=== PATIENT | female | born 1995 | race Hispanic/Latino ===

== ENCOUNTER 2019-05-23 17:01 | Emergency (ER) | payer SELFPAY ==
[2019-05-23] MEDS ORDERED: ACYCLOVIR 400 MG TABLET ONE (17:28)
[2019-05-23] MEDS ORDERED: predniSONE 20 MG TAB ONE (17:28)
[2019-05-23] MEDS ORDERED: FAMOTIDINE 20 MG TAB ONE ×2 (17:29)
--- NOTE | 2019-05-23 18:18 | RAD REPORT ---
EXAM DESCRIPTION: CT - Head Brain Wo Cont - 05/23/2019 5:52 pm CLINICAL HISTORY: Monterroso's palsy/numbness COMPARISON: None TECHNIQUE: Computed axial tomography of the head was obtained. IV contrast was not requested. All CT scans are performed using dose optimization technique as appropriate and may include automated exposure control or mA/KV adjustment according to patient size. FINDINGS: An intracranial bleed is not seen . The ventricles are normal in caliber. No extra-axial fluid collection is noted. Fluid within the sinuses/ mastoids is not seen. IMPRESSION: No acute intracranial abnormality is seen. If patient's symptoms persist MRI of the bra in would be recommended.
--- NOTE | 2019-05-23 18:23 | ER ---
Nurse's Notes [facility] Name: Daniella Palomares Age: 23 yrs Sex: Female : 1995 Arrival Date: 05/23/2019 Time: 17:01 Bed 18 Private MD: Diagnosis: Monterroso's palsy Presentation: 05/23 17:07 Presenting complaint: Right sided facial numbness x 5 days. Pr reports numbness began hb at right lip then progressed over the last few days to cheek and right eye area. Transition of care: patient was not received from another setting of care. Onset of symptoms was May 19, 2019. Risk Assessment: Do you want to hurt yourself or someone else? Patient reports no desire to harm self or others. Initial Sepsis Screen: Does the patient meet any 2 criteria? No. Patient's initial sepsis screen is negative. Does the patient have a suspected source of infection? No. Patient's initial sepsis screen is negative. Care prior to arrival: None. 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 - Social history:: Smoking status: Patient/guardian denies using tobacco. - Ebola Screening: : No symptoms or risks identified at this time. Screenin:16 Abuse screen: Denies threats or abuse. Nutritional screening: No deficits noted. em Tuberculosis screening: No symptoms or risk factors identified. Fall Risk None identified. Assessment: 17:29 General: Appears in no apparent distress. comfortable, Behavior is calm, cooperative, em Denies fever. Pain: Denies pain. Neuro: Level of Consciousness is awake, alert, obeys commands, Oriented to person, place, time, situation, Appropriate for age Undercover Cop are equal bilaterally Moves all extremities. Gait is steady, Speech is normal, Facial droop on right, Pupils are Numbness in right eye, right cheek and right jaw Reports headache parietal area. Cardiovascular: Capillary refill < 3 seconds Patient's skin is warm and dry. Respiratory: Airway is patent Respiratory effort is even, unlabored, Respiratory pattern is regular, symmetrical. GI: Patient currently denies nausea, vomiting. EENT: Denies difficulty swallowing. Derm: Skin is intact, is healthy with good turgor, Skin is pink, warm \T\ dry. Musculoskeletal: Capillary refill < 3 seconds, Range of motion: intact in all extremities. Vital Signs: 17:07 BP 115 / 80; Pulse 76; Resp 16; Temp 97.8; Pulse Ox 100% on R/A; Weight 76.2 kg; Height hb 5 ft. 7 in. (170.18 cm); Pain 0/10; 17:07 Body Mass Index 26.31 (76.20 kg, 170.18 cm) hb ED Course: 17:01 Patient arrived in ED. as 17:06 Arm band placed on. hb 17:09 Triage completed. hb 17:11 [facility] snw 17:11 Marcus Hutson MD is Attending Physician. snw 17:15 Joni Rajput LVN is Primary Nurse. em 17:16 Patient has correct armband on for positive identification. Bed in low position. Call em light in reach. Adult w/ patient. 17:53 CT Head Brain wo Cont In Process Unspecified. EDMS 18:34 No provider procedures requiring assistance completed. Patient did not have IV access em during this emergency room visit. Administered Medications: 17:36 Drug: predniSONE 40 mg Route: PO; em 18:34 Follow up: Response: No adverse reaction em 17:36 Drug: Pepcid 20 mg Route: PO; em 18:33 Follow up: Response: No adverse reaction em 17:36 Drug: Acyclovir 800 mg Route: PO; em 18:33 Follow up: Response: No adverse reaction em Outcome: 18:22 Discharge ordered by . snw 18:34 Discharged to home ambulatory, with family. em 18:34 Condition: good 18:34 Discharge instructions given to patient, family, Instructed on discharge instructions, follow up and referral plans. medication usage, Demonstrated understanding of instructions, follow-up care, medications, Prescriptions given X 3. 18:35 Patient left the ED. em Signatures: Dispatcher [employer] EDMS Sonia Matthew FNP-C RACK PULLER-Csnw Joni Rajput LVN LVN Krystal Love as Magnolia Thornton, RN RN hb
--- NOTE | 2019-05-23 18:23 | EDPHYS ---
Physician Documentation [facility] Name: Daniella Palomares Age: 23 yrs Sex: Female : 1995 Arrival Date: 05/23/2019 Time: 17:01 Bed 18 Private MD: ED Physician Marcus Hutson HPI: 05/23 17:24 This 23 yrs old Female presents to ER via Ambulatory with complaints of snw Numbness Of Face. 17:24 Onset: The symptoms/episode began/occurred suddenly, 5 day(s) ago, and became snw persistent. Associated signs and symptoms: Pertinent positives: The patient does not have any pertinent positive signs or symptoms associated with pediatric illness. The patient has not experienced similar symptoms in the past. The patient has not recently seen a physician. 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 - Social history:: Smoking status: Patient/guardian denies using tobacco. - Ebola Screening: : No symptoms or risks identified at this time. ROS: 17:23 Constitutional: Negative for fever, chills, and weight loss, Eyes: Negative for injury, snw pain, redness, and discharge, ENT: Negative for injury, pain, and discharge, Neck: Negative for injury, pain, and swelling, Cardiovascular: Negative for chest pain, palpitations, and edema, Respiratory: Negative for shortness of breath, cough, wheezing, and pleuritic chest pain, Abdomen/GI: Negative for abdominal pain, nausea, vomiting, diarrhea, and constipation, Back: Negative for injury and pain, : Negative for injury, bleeding, discharge, and swelling, MS/Extremity: Negative for injury and deformity, Skin: Negative for injury, rash, and discoloration. 17:23 Neuro: Positive for of the right eye, right cheek, right jaw and right side of forehead. Exam: 17:22 Constitutional: This is a well developed, well nourished patient who is awake, alert, snw and in no acute distress. Eyes: Pupils equal round and reactive to light, extra-ocular motions intact. Lids and lashes normal. Conjunctiva and sclera are non-icteric and not injected. Cornea within normal limits. Periorbital areas with no swelling, redness, or edema. ENT: Nares patent. No nasal discharge, no septal abnormalities noted. Tympanic membranes are normal and external auditory canals are clear. Oropharynx with no redness, swelling, or masses, exudates, or evidence of obstruction, uvula midline. Mucous membranes moist. Neck: Trachea midline, no thyromegaly or masses palpated, and no cervical lymphadenopathy. Supple, full range of motion without nuchal rigidity, or vertebral point tenderness. No Meningismus. Chest/axilla: Normal chest wall appearance and motion. Nontender with no deformity. No lesions are appreciated. Cardiovascular: Regular rate and rhythm with a normal S1 and S2. No gallops, murmurs, or rubs. Normal PMI, no JVD. No pulse deficits. Respiratory: Lungs have equal breath sounds bilaterally, clear to auscultation and percussion. No rales, rhonchi or wheezes noted. No increased work of breathing, no retractions or nasal flaring. Abdomen/GI: Soft, non-tender, with normal bowel sounds. No distension or tympany. No guarding or rebound. No evidence of tenderness throughout. Back: No spinal tenderness. No costovertebral tenderness. Full range of motion. Skin: Warm, dry with normal turgor. Normal color with no rashes, no lesions, and no evidence of cellulitis. MS/ Extremity: Pulses equal, no cyanosis. Neurovascular intact. Full, normal range of motion. Neuro: Awake and alert, GCS 15, oriented to person, place, time, and situation. Cranial nerves II-XII grossly intact. Motor strength 5/5 in all extremities. Sensory grossly intact. Cerebellar exam normal. Normal gait. Psych: Awake, alert, with orientation to person, place and time. Behavior, mood, and affect are within normal limits. 17:22 Head/face: Noted is no obvious of injury or deformity except decreased sensation over right face. Vital Signs: 17:07 BP 115 / 80; Pulse 76; Resp 16; Temp 97.8; Pulse Ox 100% on R/A; Weight 76.2 kg; Height hb 5 ft. 7 in. (170.18 cm); Pain 0/10; 17:07 Body Mass Index 26.31 (76.20 kg, 170.18 cm) hb MDM: 17:12 Patient medically screened. snw 18:23 Data reviewed: vital signs, nurses notes. Data interpreted: Pulse oximetry: on room air snw is 100 %. Interpretation: normal. Counseling: I had a detailed discussion with the patient and/or guardian regarding: the historical points, exam findings, and any diagnostic results supporting the discharge/admit diagnosis, the presence of at least one elevated blood pressure reading (>120/80) during this emergency department visit, lab results, the need for outpatient follow up, to return to the emergency department if symptoms worsen or persist or if there are any questions or concerns that arise at home. Special discussion: I have referred the patient to see his PCP for further evaluation of high blood pressure. Based on the history and exam findings, there is no indication for further emergent testing or inpatient evaluation. I discussed with the patient/guardian the need to see the primary care provider for further evaluation of the symptoms. 05/23 17:26 Order name: CT Head Brain wo Cont; Complete Time: 18:21 snw 05/23 17:20 Order name: Urine Dipstick-Ancillary (obtain specimen); Complete Time: 17:24 snw 05/23 17:20 Order name: Urine Test (obtain specimen); Complete Time: 17:24 snw Administered Medications: 17:36 Drug: predniSONE 40 mg Route: PO; em 18:34 Follow up: Response: No adverse reaction em 17:36 Drug: Pepcid 20 mg Route: PO; em 18:33 Follow up: Response: No adverse reaction em 17:36 Drug: Acyclovir 800 mg Route: PO; em 18:33 Follow up: Response: No adverse reaction em Disposition: 18:40 Co-signature as Attending Physician, Marcus Hutson MD. rn Disposition: 05/23/19 18:22 Discharged to Home. Impression: Monterroso's palsy. - Condition is Stable. - Discharge Instructions: Monterroso Palsy, Adult, Dry Eye. - Prescriptions for Valtrex 1 g Oral Tablet - take 1 tablet by ORAL route every 8 hours for 7 days; 21 tablet. Prednisone 20 mg Oral Tablet - take 2 tablet by ORAL route once daily for 5 days; 10 tablet. Pepcid 20 mg Oral Tablet - take 1 tablet by ORAL route once daily for 10 days; 10 tablet. - Medication Reconciliation Form, Thank You Letter, Antibiotic Education, Prescription Opioid Use form. - Follow up: Private Physician; When: 2 - 3 days; Reason: Recheck today's complaints, Continuance of care, Re-evaluation by your physician. Follow up: Emergency Department; When: As needed; Reason: Worsening of condition. Signatures: Dispatcher [employer] EDCA Sonia Matthew, WARREN-C PARKING ENFORCEMENT MANAGER-Csnw Joni Rajput, DIVE MASTER DIVE MASTER em Marcus Hutson MD MD rn Baxter, Heather, RN RN Corrections: (The following items were deleted from the chart) 18:35 18:22 05/23/2019 18:22 Discharged to Home. Impression: Monterroso's palsy. Condition is em Stable. Forms are Medication Reconciliation Form, Thank You Letter, Antibiotic Education, Prescription Opioid Use. Follow up: Private Physician; When: 2 - 3 days; Reason: Recheck today's complaints, Continuance of care, Re-evaluation by your physician. Follow up: Emergency Department; When: As needed; Reason: Worsening of condition. snw
[2019-05-23 19:00] VITALS: BP 115/80; TEMP 97.8; O2SAT 100
== END 2019-05-23 18:35 | disposition home or self-care (01) ==
LOC: ER 17:01
DX: G51.0 Bell's palsy (principal)
CPT/HCPCS: 70450; 99283; J7512

== ENCOUNTER 2019-09-08 20:08 | Emergency (ER) | payer SELFPAY ==
--- OUTSIDE RECORDS SUMMARY | 2019-09-08 20:10 | XMS REPORT ---
:1995 [facility] Address [address] [place] [address] Dr. De León [phone] Care Team Providers Name Role Phone Unavailable Unavailable Unavailable Payers Payer Name Policy Type Policy Number Effective Date Expiration Date Problems This patient has no known problems. Allergies, Adverse Reactions, Alerts Allergy Allergy Status Severity Reaction(s) Onset Inactive Treating Comments Name Type Date Date Clinician No Known DA Active U 2018-05 Allergies -24 00:00:0 0 No Known DA Active U 2015-11 Allergies -15 00:00:0 0 Medications This patient has no known medications.
--- NOTE | 2019-09-08 21:03 | RAD REPORT ---
EXAM DESCRIPTION: RAD - Chest Pa And Lat (2 Views) - 09/08/2019 8:58 pm CLINICAL HISTORY: COUGH Chest pain. COMPARISON: No comparisons FINDINGS: The lungs are clear. The heart is normal in size. No displaced fractures. IMPRESSION: No acute or concerning finding suspected.
--- NOTE | 2019-09-08 21:48 | ER ---
Nurse's Notes [facility] Name: Daniella Palomares Age: 24 yrs Sex: Female : 1995 Arrival Date: 09/08/2019 Time: 20:10 Bed 30 Private MD: Diagnosis: Acute bronchitis, unspecified Presentation: 09/07 20:18 Chief complaint: Patient states: Was at [facility] 2 weeks ago, they tested for ca1 Flu and Strep, both negative. Prescribed Bromfed and Ibuprofen. [place] the same and not better. Reports feeling sick and having cough and congestion for 1 month and 1 week now. Visited [facility] again today, sent here to the ER. Reports fever for the past few days. Coronavirus screen: The patient has NOT traveled to a country currently being monitored by the CDC within the last 14 days. The patient has NOT had contact with any known and/or suspected case of coronavirus. Ebola Screen: Patient negative for fever greater than or equal to 101.5 degrees Fahrenheit, and additional compatible Ebola Virus Disease symptoms Patient denies exposure to infectious person. Patient denies travel to an Ebola-affected area in the 21 days before illness onset. No symptoms or risks identified at this time. Initial Sepsis Screen: Does the patient meet any 2 criteria? No. Patient's initial sepsis screen is negative. Does the patient have a suspected source of infection? No. Patient's initial sepsis screen is negative. Risk Assessment: Do you want to hurt yourself or someone else? Patient reports no desire to harm self or others. Onset of symptoms was September 08, 2019. 20:18 Method Of Arrival: Ambulatory ca1 20:18 Acuity: JUDD 3 ca1 Triage Assessment: 22:04 General: Appears in no apparent distress. Behavior is calm, cooperative. iw CLOSER ON: 20:22 LMP 09/07/2019 ca1 Historical: - Allergies: 20:22 No Known Allergies; ca1 - Home Meds: 20:22 None [Active]; ca1 - PMHx: 20:22 None; ca1 - PSHx: 20:22 None; ca1 - Immunization history:: Adult Immunizations up to date, Flu vaccine is not up to date. - Social history:: Smoking status: Patient denies any tobacco usage or history of. Screenin:00 Abuse screen: Denies threats or abuse. Denies injuries from another. Nutritional iw screening: No deficits noted. Tuberculosis screening: No symptoms or risk factors identified. Fall Risk None identified. Assessment: 21:40 General: Appears in no apparent distress. Behavior is calm, cooperative, appropriate iw for age. Pain: Complains of pain in throat. Neuro: Level of Consciousness is awake, alert, obeys commands, Oriented to person, place, time, situation, Moves all extremities. Cardiovascular: Patient's skin is warm and dry. Respiratory: Reports cough that is non-productive, Respiratory effort is even, unlabored, Respiratory pattern is regular, symmetrical. Derm: Skin is intact, is healthy with good turgor. Musculoskeletal: Range of motion: intact in all extremities. Vital Signs: 20:18 BP 125 / 77; Pulse 88; Resp 19 S; Temp 97.3(TE); Pulse Ox 100% on R/A; Weight 80.74 kg ca1 (R); Height 5 ft. 7 in. (170.18 cm) (R); Pain 6/10; 20:18 Body Mass Index 27.88 (80.74 kg, 170.18 cm) ca1 ED Course: 20:10 Patient arrived in ED. ag3 20:21 Triage completed. ca1 20:22 Arm band placed on right wrist. ca1 20:23 Yuri Pagan MD is Attending Physician. sol 20:24 Yuri Armenta PA is PHCP. cp 20:35 Zoya Lizarraga, RN is Primary Nurse. iw 20:59 Chest Pa And Lat (2 Views) XRAY In Process Unspecified. EDMS 21:40 Patient has correct armband on for positive identification. iw 22:04 No provider procedures requiring assistance completed. Patient did not have IV access iw during this emergency room visit. Administered Medications: No medications were administered Outcome: 21:48 Discharge ordered by . cp 22:04 Discharged to home ambulatory. iw 22:04 Condition: good 22:04 Discharge instructions given to patient, Instructed on discharge instructions, follow up and referral plans. medication usage, Demonstrated understanding of instructions, follow-up care, medications, Prescriptions given X 3. 22:05 Patient left the ED. iw Signatures: Dispatcher [employer] EDMS Yuri Pagan MD MD cha Williams, Irene, RN RN iw Yuri Armenta PA PA Nanette Butcher 3 Acob, Mayra, RN RN ca1
--- NOTE | 2019-09-08 21:48 | EDPHYS ---
Physician Documentation [facility] Name: Daniella Palomares Age: 24 yrs Sex: Female : 1995 Arrival Date: 09/08/2019 Time: 20:10 Bed 30 Private MD: ED Physician Yuri Pagan HPI: 09/07 20:35 This 24 yrs old Female presents to ER via Ambulatory with complaints of Cough, cp Fever. 20:35 The patient or guardian reports cough, that is intermittent, with productive sputum, cp that is yellow. Onset: The symptoms/episode began/occurred 1 month(s) ago. 20:35 The patient has been recently seen by a physician: at a clinic, earlier today, 2 cp week(s) ago, with similar presenting complaints, and was sent to the [facility] Emergency Department for further evaluation. 20:35 Associated signs and symptoms: Pertinent negatives: chest pain, fever, vomiting. 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 - Social history:: Smoking status: Patient denies any tobacco usage or history of. ROS: 20:40 Constitutional: Negative for body aches, chills, fever, poor PO intake. cp 20:40 Eyes: Negative for injury, pain, redness, and discharge. cp 20:40 ENT: Negative for drainage from ear(s), ear pain, sore throat, difficulty swallowing, difficulty handling secretions. 20:40 Cardiovascular: Negative for chest pain, edema, palpitations. 20:40 Respiratory: Positive for cough, "sounds productive", Negative for shortness of breath, wheezing. 20:40 Abdomen/GI: Negative for abdominal pain, nausea, vomiting, and diarrhea. 20:40 Skin: Negative for rash. 20:40 Neuro: Negative for altered mental status, dizziness, headache, syncope, weakness. 20:40 All other systems are negative. Exam: 20:45 Constitutional: The patient appears in no acute distress, alert, awake, non-toxic, well cp developed, well nourished. 20:45 Head/Face: Normocephalic, atraumatic. cp 20:45 Eyes: Periorbital structures: appear normal, Conjunctiva: normal, no exudate, no injection, Sclera: no appreciated abnormality, Lids and lashes: appear normal, bilaterally. 20:45 ENT: External ear(s): are unremarkable, Ear canal(s): are normal, clear, TM's: dullness, bilaterally, Nose: is normal, Mouth: Lips: moist, Oral mucosa: pink and intact, moist, Posterior pharynx: Airway: normal, no evidence of obstruction, swelling, is not appreciated, erythema, that is mild, exudate, is not appreciated. 20:45 Neck: ROM/movement: is normal, is supple, no meningismus, Lymph nodes: no appreciated lymphadenopathy. 20:45 Chest/axilla: Inspection: normal, Palpation: is normal, no crepitus, no tenderness. 20:45 Cardiovascular: Rate: normal, Rhythm: regular. 20:45 Respiratory: the patient does not display signs of respiratory distress, Respirations: normal, no use of accessory muscles, no retractions, labored breathing, is not present, Breath sounds: are clear throughout, no decreased breath sounds, no stridor, no wheezing. 20:45 Abdomen/GI: Exam negative for discomfort, distension, guarding, Inspection: abdomen appears normal. 20:45 Skin: no rash present. Vital Signs: 20:18 BP 125 / 77; Pulse 88; Resp 19 S; Temp 97.3(TE); Pulse Ox 100% on R/A; Weight 80.74 kg ca1 (R); Height 5 ft. 7 in. (170.18 cm) (R); Pain 6/10; 20:18 Body Mass Index 27.88 (80.74 kg, 170.18 cm) ca1 MDM: 20:24 Patient medically screened. sol 21:00 Differential Diagnosis: Bronchitis Influenza Upper Respiratory Infection Sinusitis cp Viral Syndrome Pneumonia. 21:15 Test interpretation: by ED physician or midlevel provider: plain radiologic studies, cp chest xray negative for infiltrates and focal pneumonia. 21:47 Data reviewed: vital signs, nurses notes, lab test result(s), radiologic studies, plain cp films, and as a result, I will discharge patient. 21:47 Counseling: I had a detailed discussion with the patient and/or guardian regarding: the cp historical points, exam findings, and any diagnostic results supporting the discharge/admit diagnosis, lab results, radiology results, to return to the emergency department if symptoms worsen or persist or if there are any questions or concerns that arise at home. 09/07 20:32 Order name: Influenza Screen (a \\T\\ B); Complete Time: 21:44 09/07 20:32 Order name: Strep; Complete Time: 21:44 09/07 20:32 Order name: Chest Pa And Lat (2 Views) XRAY; Complete Time: 21:44 09/07 21:44 Interpretation: Report reviewed. 09/07 21:09 Order name: Throat Culture EDMT Administered Medications: No medications were administered Disposition: 09/08 06:13 Co-signature as Attending Physician, Yuri Pagan MD I agree with the assessment and sol plan of care. Disposition: 09/08/19 21:48 Discharged to Home. Impression: Acute bronchitis, unspecified. - Condition is Stable. - Discharge Instructions: Acute Bronchitis, Adult. - Prescriptions for Tessalon Perles 100 mg Oral Capsule - take 2 capsule by ORAL route every 8 hours As needed; 30 capsule. Zithromax Z- Ezekiel 250 mg Oral Tablet - take 1 tablet by ORAL route as directed for 5 days Day 1 - take two (2) tablets one time. Day 2, 3, 4 , 5 take one (1) tablet once daily.; 6 tablet. Albuterol Sulfate 90 mcg/actuation - inhale 1-2 puff by INHALATION route every 4-6 hours; 1 Inhaler. - Work release form, Medication Reconciliation Form, Thank You Letter, Antibiotic Education, Prescription Opioid Use form. - Follow up: Private Physician; When: 2 - 3 days; Reason: Worsening of condition. - Problem is new. - Symptoms have improved. Signatures: Dispatcher [employer] EDMT Yuri Pagan MD MD cha Williams, Irene, RN RN iw Page, Corey, PA PA cp Acob, Cheryl, RN RN ca1 Corrections: (The following items were deleted from the chart) 09/07 22:01 20:32 Urine Test ordered. [facility] 22: 20:32 Urine Dipstick-Ancillary ordered. [facility] 22:05 21:48 09/08/2019 21:48 Discharged to Home. Impression: Acute bronchitis, unspecified. iw Condition is Stable. Forms are Medication Reconciliation Form, Thank You Letter, Antibiotic Education, Prescription Opioid Use. Follow up: Private Physician; When: 2 - 3 days; Reason: Worsening of condition. Problem is new. Symptoms have improved. cp
== END 2019-09-08 22:05 | disposition home or self-care (01) ==
LOC: ER 20:08
DX: J20.9 Acute bronchitis, unspecified (principal)
CPT/HCPCS: 71046; 87070; 87081; 87804; 99283